=== PATIENT | female | born 1950 | race Caucasian/White ===

== ENCOUNTER 2017-01-24 11:33 | Emergency (ER) | payer BC, OTHER ==
[2017-01-24 11:38] VITALS: TEMP 97.5; O2SAT 98
--- NOTE | 2017-01-24 11:55 | EDPHY ---
H & P Stated Complaint: Stabbing behind left eye for 2 days Time Seen by Provider: 01/24/17 11:54 - Personal History Current Tetanus Diphtheria and Acellular Pertussis (TDAP): Yes Tetanus Vaccine Date: 10/03/11 - Medical/Surgical History Hx Asthma: No Hx Chronic Respiratory Disease: No Hx Diabetes: No Hx Cardiac Disease: No Hx Renal Disease: No Hx Cirrhosis: No Hx Alcoholism: No Hx HIV/AIDS: No Hx Splenectomy or Spleen Trauma: No Other PMH: Breast cancer. - Social History Smoking Status: Never smoked Constitutional: Initial Vital Signs Temperature (C) 36.4 C 01/24/17 11:34 Heart Rate 82 01/24/17 11:34 Respiratory Rate 18 01/24/17 11:34 Blood Pressure 132/89 H 01/24/17 11:34 O2 Sat (%) 98 01/24/17 11:34 O2 Delivery Mode Room Air Allergies/Adverse Reactions: emollient combination no. 32 [From EpiCeram] Allergy (Verified 04/26/14 14:49) metronidazole [From MetroCream] Allergy (Verified 04/26/14 14:45) Cigarette smoke Allergy (Uncoded 03/14/14 11:30) Home Medications: Medication Instructions Recorded Aspirin [Aspirin 81mg (*)] 81 mg PO DAILY 04/26/14 Cholecalciferol Vit D3 [Vitamin D3 2,000 units PO BID 04/26/14 (*)] Multivitamins [Multivitamin (*)] 1 each PO DAILY 04/26/14 [place]-3 Fatty Acids [Fish Oil 1000 1,000 mg PO DAILY 04/26/14 mg (*)] Tamoxifen Citrate 01/24/17 Valacyclovir HCl [Valtrex] 1,000 mg PO TID #21 tab 01/24/17 oxyCODONE IR [Oxycodone Ir (*)] 5 - 10 mg PO Q6 PRN #20 tab 01/24/17 oxyCODONE IR [Oxycodone Ir (*)] 5 - 10 mg PO Q6 PRN #20 tab 01/24/17 Medical Decision Making ED Course/Re-evaluation: CHIEF COMPLAINT: Scalp pain HISTORY OF PRESENT ILLNESS: The patient is a 66 y/o female with a history of breast cancer arriving with her complaining of intermittent stabbing pain behind her left eye and along her scalp onset 3 days ago. She describes sharp pain along her left frontotemporal scalp the extends behind her left eye. She has lesions on her scalp overlying the site of her pain. No associated vision changes, weakness, paresthesias, or other complaints. She denies prior history of Shingles, but did have Varicella previously. She received a shingles vaccination. REVIEW OF SYSTEMS: A 10 point review of systems was performed and is negative with the exception of the elements mentioned in the history of present illness. Has a broken tooth that is being addressed by a dentist this week. PHYSICAL EXAM: HR, BP, O2 Sat, RR. Temp noted General Appearance: Alert, well hydrated, appropriate, and non-toxic appearing. Head: Erythematous lesions along one dermatomal distribution of her left frontotemporal scalp without blistering Eyes: Pupils equal, round, reactive to light and accommodation, EOMI, no trauma , mild left conjunctival injection. Swelling of upper left lateral eyelid. Nose: Atraumatic, no rhinorrhea, clear. Throat: Mucus membranes moist. Neck: Supple, nontender, no lymphadenopathy. Respiratory: No retractions, no distress, no wheezes, and no accessory muscle use. Lungs are clear to auscultation bilaterally. Cardiovascular: Regular rate and rhythm, no murmurs, rubs, or gallops. Good capillary refill all extremities. Gastrointestinal: Abdomen is soft, nontender, non-distended, no masses, no rebound, no guarding, no peritoneal signs. Musculoskeletal: Normal active ROM of all extremities, atraumatic. Neurological: Alert, appropriate, and interactive. Nonfocal neuro exam. Skin: No rashes, good turgor, no nodules on palpation. Past medical history: Breast cancer - tamoxifen, head injury from construction accident Past surgical history: noncontributory Family history: noncontributory Social history: at bedside DIFFERENTIAL DIAGNOSIS: The differential diagnosis for the patient's pain included but was not limited to shingles, subarachnoid hemorrhage, migraine headache, tension headache and infectious causes such as meningitis, pharyngitis and sinusitis. MEDICAL DECISION MAKING: This is a 66 y/o female who presents with a 3-day history of pain behind her left eye that extends along her left frontotemporal scalp. She has new erythematous lesions in a linear pattern directly underlying the site of her pain. Her symptoms and exam are consistent with early shingles. Plan to treat with Valtrex. Departure - Departure Disposition: Home, Routine, Self-Care Clinical Impression: Shingles Qualifiers: Herpes zoster complications: without complications Qualified Code(s): B02.9 - Zoster without complications Condition: Good Instructions: Valacyclovir (By mouth), Shingles (ED) Additional Instructions: 1. Take Valtrex as prescribed for shingles. 2. Take OxyIR as prescribed when needed for severe pain. 3. Shingles is contagious and can be transferred to other people through touch. Take precautions to avoid this while you have symptoms and visible rash. 4. Follow up with your primary care provider this week. 5. Follow up with Dr. Daly, seasonal clerk, without fail tomorrow. 6. Return to the ED for any worsening of condition. Referrals: Ml Sotomayor MD [Primary Care Provider] - As per Instructions Genet Daly MD [Non Staff Provider (MD)] - As per Instructions Prescriptions: oxyCODONE IR [Oxycodone Ir (*)] 5 - 10 mg PO Q6 PRN #20 tab PRN Reason: Pain, Severe oxyCODONE IR [Oxycodone Ir (*)] 5 - 10 mg PO Q6 PRN #20 tab PRN Reason: Pain, Severe Valacyclovir HCl [Valtrex] 1,000 mg PO TID #21 tab Report Scribed for: Anurag Waddell Report Scribed by: Rowena Marcano Date of Report: 01/24/17 Time of Report: 12:09
[2017-01-24 12:11] VITALS: BP 127/88; PULSE 80; RESP 16
[2017-01-24] MEDS ORDERED: FLUORESCEIN SODIUM 1 MG STRIP OP ONE (12:22)
[2017-01-24] MEDS ORDERED: valACYclovir 500 MG TAB PO ONE (12:22)
== END 2017-01-24 13:28 | disposition home or self-care (01) ==
DX: B02.9 Zoster without complications (principal); Z79.82 Long term (current) use of aspirin; Z85.3 Personal history of malignant neoplasm of breast

== ENCOUNTER → 2017-06-08 | Outpatient (CLI) | payer OTHER | LOC: FIMAGING 14:59 | PROVIDERS: ATTEND Internal Medicine | DX: Z13.820 Encounter for screening for osteoporosis (principal) ==

== ENCOUNTER → 2018-08-25 | Outpatient (CLI) | payer OTHER | LOC: BMCIMAGING 10:10 | PROVIDERS: ATTEND Family Medicine | DX: S52.572A Other intraarticular fracture of lower end of left radius, initial encounter for closed fracture (principal); S52.612A Displaced fracture of left ulna styloid process, initial encounter for closed fracture; M85.88 Other specified disorders of bone density and structure, other site; M18.12 Unilateral primary osteoarthritis of first carpometacarpal joint, left hand ==

== ENCOUNTER → 2018-09-07 | Outpatient (CLI) | payer OTHER | LOC: BMCIMAGING 11:24 | PROVIDERS: ATTEND Orthopaedic Surgery Hand Surgery | DX: S52.615D Nondisplaced fracture of left ulna styloid process, subsequent encounter for closed fracture with routine healing (principal) ==

== ENCOUNTER → 2018-10-05 | Outpatient (CLI) | payer OTHER | LOC: BMCIMAGING 10:50 | PROVIDERS: ATTEND Orthopaedic Surgery Hand Surgery | DX: S52.615D Nondisplaced fracture of left ulna styloid process, subsequent encounter for closed fracture with routine healing (principal); S52.572D Other intraarticular fracture of lower end of left radius, subsequent encounter for closed fracture with routine healing ==